=== PATIENT | female | born 1980 | race Caucasian/White ===

== ENCOUNTER 2024-01-17 23:30 | Emergency (ER) | payer BC, SELFPAY ==
[~2024-01-17] VITALS: Ht 162.6 cm; Wt 77.9 kg
[2024-01-18 02:05] VITALS: BP 133/85; TEMP 97.7; O2SAT 97
== END 2024-01-18 03:39 | disposition left against medical advice (07) ==
LOC: M ED 23:30
DX: Z53.21 Procedure and treatment not carried out due to patient leaving prior to being seen by health care provider (principal)

== ENCOUNTER → 2024-01-19 | Outpatient (CLI) | payer BC | LOC: M PLAIMG 08:31 | PROVIDERS: ATTEND Registered Nurse | DX: T76.01XA Adult neglect or abandonment, suspected, initial encounter (principal) ==